=== PATIENT | male | born 1975 | race Caucasian/White ===

== ENCOUNTER → 2024-01-08 12:38 | Outpatient (REF) | payer BC, SELFPAY | LOC: HWRAD 12:38 | PROVIDERS: ATTENDING PHYSICIAN Surgery | DX: K40.90 Unilateral inguinal hernia, without obstruction or gangrene, not specified as recurrent (principal) | CPT/HCPCS: 74177; Q9967 ==

== ENCOUNTER → 2025-01-12 16:35 | Outpatient (REF) | payer BC, SELFPAY | LOC: MRI 16:35 | PROVIDERS: ATTENDING PHYSICIAN Internal Medicine | DX: M79.671 Pain in right foot (principal) | CPT/HCPCS: 73720; A9575 ==